=== PATIENT | male | born 1990 | race Caucasian/White ===

== ENCOUNTER 2019-06-11 07:27 | Emergency (ER) | payer BC ==
[~2019-06-11] VITALS: Wt 132.9 kg
[~2019-06-11 07:27] MED LIST: DENIES; NAPR-985 PO
[2019-06-11 07:31] VITALS: BP 160/79; PULSE 87; RESP 18
[2019-06-11] MEDS ORDERED: ONDANSETRON (ODT) 4 MG TAB ODT STA (07:52)
[2019-06-11] MEDS ORDERED: HYDROCODONE/APAP (5/325) TAB PO ONE (08:00)
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
== END 2019-06-11 08:38 | disposition home or self-care (01) ==
LOC: FTE 07:27
DX: S00.83XA Contusion of other part of head, initial encounter (principal); Y04.8XXA Assault by other bodily force, initial encounter
CPT/HCPCS: Z7502; Z7610; 99283